=== PATIENT | male | born 1970 | race Hispanic/Latino ===

== ENCOUNTER 2023-04-13 10:18 | Emergency (ER) | payer OTHER ==
[2023-04-13 10:45] LABS: Absolute Lymphocytes (CBC) 1.6 K/uL (0.7-4.9); Hematocrit 40.8 % (39.6-49.0); Lymphocytes % 24.4 % (15.3-44.8); MCV 89.7 fL (80-100); MPV 8.8 fL (7.6-11.3); RBC Red Blood Cell Count 4.55 M/uL (4.33-5.43)
[2023-04-13] MEDS ORDERED: ONDANSETRON 4 MG/2 ML VIAL ONE (10:56)
[2023-04-13] MEDS ORDERED: KETOROLAC 30 MG/ML INJ ONE (10:56)
[2023-04-13] MEDS ORDERED: NA CHLORIDE 0.9% 1,000 ML ONE (10:56)
[2023-04-13 11:01] LABS: Bilirubin Direct 0.1 mg/dL (0-0.2); Bilirubin Indirect, Calculated 0.3 mg/dL (0.2-0.8); Bilirubin Total 0.4 mg/dL (0.2-1.0); Potassium 3.7 mEq/L (3.5-5.1); Protein, Total 7.6 g/dL (6.4-8.2)
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
--- NOTE | 2023-04-13 11:51 | RAD REPORT ---
EXAM DESCRIPTION: Lam Single View04/13/2023 10:49 am CLINICAL HISTORY: Chest pain COMPARISON: none FINDINGS: The lungs appear clear of acute infiltrate. The heart is normal size IMPRESSION: No acute abnormalities displayed
--- NOTE | 2023-04-13 11:52 | RAD REPORT ---
EXAM DESCRIPTION: RAD - Shoulder Left 2 View - 04/13/2023 10:48 am CLINICAL HISTORY: Left shoulder pain FINDINGS: No fracture seen. Mild widening AC joint may indicate a mild sprain
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
[2023-04-13 12:10] LABS: Specific Gravity 1.025 (1.005-1.030); Urine Bilirubin NEGATIVE (Negative); Urine Blood Negative (Negative); Urine Clarity Clear (Clear); Urine Color Colorless (Yellow); Urine Glucose NEGATIVE (Negative); Urine Protein NEGATIVE (Negative); Urine Urobilinogen Normal (Normal); Urine pH 5.5 (5.0-7.0)
[2023-04-13 12:35] VITALS: TEMP 98.8
[2023-04-13 12:38] VITALS: O2SAT 100
[2023-04-13 12:41] VITALS: BP 128/68
== END 2023-04-13 12:30 | disposition home or self-care (01) ==
LOC: ER 10:18
DX: S20.212A Contusion of left front wall of thorax, initial encounter (principal); S20.222A Contusion of left back wall of thorax, initial encounter; S40.012A Contusion of left shoulder, initial encounter; S70.02XA Contusion of left hip, initial encounter; S09.90XA Unspecified injury of head, initial encounter; V49.49XA Driver injured in collision with other motor vehicles in traffic accident, initial encounter
CPT/HCPCS: 85025; 80048; 36415; 86900; 86850; 86901; 80076; 81003; 83690; 70450; 72125; 71260; 74177; 71045; 73030; Q9967; J2405; J7030